=== PATIENT | male | born 1930 | race Caucasian/White ===

== ENCOUNTER 2018-11-29 01:13 | Inpatient (IN) | payer OTHER ==
[2018-11-29] MEDS ORDERED: ONDANSETRON 4 MG INJ IV (03:30)
[2018-11-29] MEDS ORDERED: morphine SULFATE/PF (2 MG/2 ML) SYG IV (03:30)
[2018-11-29] MEDS ORDERED: ACETAMINOPHEN 500 MG TAB PO (03:30)
[2018-11-29] MEDS: SOD CHLORIDE 0.9% 1,000 ML IV (03:46)
[2018-11-29 06:01] LABS: ABNORMAL IP MESSAGE 1; ADD MAN DIFF? NO; EOSINOPHILS # 0.1 10^3/ul (0.0-0.5); EOSINOPHILS % 3.3 % (0.0-7.0); HEMATOCRIT 26.3 % (42.0-52.0); HEMOGLOBIN 8.9 g/dl (14.0-18.0); LYMPHOCYTES # 1.1 10^3/ul (0.8-2.9); LYMPHOCYTES % 27.8 % (15.0-51.0); MEAN CORPUSCULAR HEMOGLOBIN 33.5 pg (29.0-33.0); MEAN CORPUSCULAR HGB CONC 33.8 g/dl (32.0-37.0); MEAN CORPUSCULAR VOLUME 98.9 fl (82.0-101.0); MEAN PLATELET VOLUME 10.3 fl (7.4-10.4); MONOCYTE # 0.4 10^3/ul (0.3-0.9); MONOCYTES % 10.9 % (0.0-11.0); NEUTROPHILS % 50.7 % (39.0-77.0); PLATELET COUNT 91 10^3/UL (140-415); POSITIVE DIFF @See below; RED BLOOD COUNT 2.66 10^6/ul (4.70-6.10); RED CELL DISTRIBUTION WIDTH 12.4 % (11.5-14.5)
[2018-11-29] MEDS: PANTOPRAZOLE (EC) 40 MG TAB PO (06:22)
[2018-11-29] MEDS: FERROUS SULFATE (EC) 325 MG TAB PO ×2 (06:22→17:06)
[2018-11-29 06:33] LABS: ANION GAP 8 (5-13); BLOOD UREA NITROGEN 26 mg/dl (7-20); CALCIUM 8.7 mg/dl (8.4-10.2); CARBON DIOXIDE 22 mmol/L (21-31); CHLORIDE 112 mmol/L (97-110); CHOL/HDL RATIO 4.5 RATIO; CHOLESTEROL 87 mg/dl (100-200); CREATININE 1.05 mg/dl (0.61-1.24); GLUCOSE 80 mg/dl (70-220); HDL CHOLESTEROL 19 mg/dl (31-75); LDL CHOLESTEROL,CALCULATED 44 mg/dl; POTASSIUM 4.7 mmol/L (3.5-5.1); SODIUM 142 mmol/L (135-144); TRIGLYCERIDES 122 mg/dl (0-149)
[2018-11-29 06:48] LABS: FREE T4 (FREE THYROXINE) 0.81 ng/dl (0.85-1.93)
[2018-11-29] MEDS: LEVOTHYROXINE 25 MCG TAB PO (07:59)
[2018-11-29 08:13] LABS: BAND NEUTROPHILS #M 0.2 10^3/ul (0.0-0.6); BAND NEUTROPHILS % (M) 6 % (0-4); EOSINOPHILS % (M) 3 % (0-7); ERYTHROBLAST% (NRBC) (M) 1 % (0-0); GIANT THROMBO% (M) 2 % (0-0); LYMPHOCYTES #M 1.5 10^3/ul (0.8-2.9); LYMPHOCYTES % (M) 38 % (15-51); PLATELET ESTIMATE DECREASED; REACTIVE LYMPHOCYTES% (M) 2 % (0-0); SEGMENTED NEUTROPHILS (M) % 51 % (39-77); SMUDGE%M 8 % (0-0)
[2018-11-29] MEDS: RIVASTIGMINE 13.3MG/24HR PATCH TD (08:36)
[2018-11-29] MEDS: CARBIDOPA/LEVODOPA (25/250) TAB PO ×4 (08:36→21:01)
[2018-11-29] MEDS: GABAPENTIN 300 MG CAP PO ×3 (08:38→21:00)
[2018-11-29] MEDS: CEPHALEXIN 250 MG CAP PO ×4 (08:38→21:00)
[2018-11-29] MEDS: ENTACAPONE 200 MG TAB PO ×4 (08:38→21:01)
[2018-11-29] MEDS: PRAMIPEXOLE 1 MG TAB PO ×3 (08:38→21:01)
[2018-11-29] MEDS: LISINOPRIL 5 MG TAB PO (08:39)
[2018-11-29] MEDS: RASAGILINE MESYLATE 1 MG TAB PO (09:00)
[2018-11-29] MEDS ORDERED: CARBIDOPA PO (09:00)
[2018-11-29] MEDS ORDERED: LEVODOPA PO (09:00)
[2018-11-29] MEDS ORDERED: FERROUS SULFATE (EC) 325 MG TAB PO (09:00)
[2018-11-29] MEDS ORDERED: NON-FORMULARY/PATIENT OWN MED (Omeprazole* 20 MG) PO (09:00)
[2018-11-29] MEDS: METHENAMINE 1 GM TAB PO ×2 (10:35→21:00)
[2018-11-29 13:57] LABS: ADD UMIC YES; UR COLOR RED (YELLOW)
[2018-11-29 13:58] LABS: UR CLARITY BLOODY (CLEAR); UR GLUCOSE (Dip) NEGATIVE (NEGATIVE); UR TOTAL PROTEIN (Dip) NEGATIVE (NEGATIVE)
[2018-11-29 13:59] LABS: UR ASCORBIC ACID NEGATIVE (NEGATIVE); UR BILIRUBIN (Dip) 1+ mg/dL (NEGATIVE); UR BLOOD (Dip) 3+ mg/dL (NEGATIVE); UR KETONES (Dip) NEGATIVE (NEGATIVE); UR LEUKOCYTE ESTERASE (Dip) NEGATIVE Leu/ul (NEGATIVE); UR NITRITE (Dip) POSITIVE (NEGATIVE); UR UROBILINOGEN (Dip) 2.0 E.U./dL mg/dL (NEGATIVE)
[2018-11-29 14:00] LABS: UR BACTERIA FEW /HPF (NONE SEEN); UR SQUAMOUS EPITHELIAL CELL FEW /HPF (FEW)
[2018-11-29] MEDS ORDERED: NON-FORMULARY/PATIENT OWN MED (Melatonin 5 MG) PO (21:00)
[2018-11-29] MEDS: OXYBUTYNIN (XL) 5 MG TAB PO (21:00)
[2018-11-29] MEDS ORDERED: PRAVASTATIN SODIUM 10 MG PO (21:00)
[2018-11-29] MEDS: MELATONIN 5 MG TABLET PO (21:01)
[2018-11-29] MEDS: ATORVASTATIN 10 MG TAB PO (21:01)
[2018-11-29] MEDS: QUETIAPINE 25 MG TAB PO (21:01)
== END 2018-11-29 21:22 | DRG 696 ==
LOC: PP2 01:13
DX: R31.0 Gross hematuria (principal); I42.9 Cardiomyopathy, unspecified; I13.0 Hypertensive heart and chronic kidney disease with heart failure and stage 1 through stage 4 chronic kidney disease, or unspecified chronic kidney disease; D61.818 Other pancytopenia; E78.5 Hyperlipidemia, unspecified; E03.9 Hypothyroidism, unspecified; G62.9 Polyneuropathy, unspecified; G30.9 Alzheimer's disease, unspecified; F02.80 Dementia in other diseases classified elsewhere, unspecified severity, without behavioral disturbance, psychotic disturbance, mood disturbance, and anxiety; Z87.820 Personal history of traumatic brain injury; N18.9 Chronic kidney disease, unspecified; I50.9 Heart failure, unspecified; N40.0 Benign prostatic hyperplasia without lower urinary tract symptoms
CPT/HCPCS: 80048; 80061; 81001; 84436; 84439; 84443; 85025; 87081; 87086; 90686; 97162